=== PATIENT | female | born 1945 | race Caucasian/White ===

== ENCOUNTER 2016-10-28 20:06 | Observation (INO) | payer MEDICARE ==
[~2016-10-28] VITALS: Ht 167.6 cm; Wt 75.0 kg
[~2016-10-28 20:06] MED LIST: ASPI81TA82 PO; ATOR40TA49 PO; IBUP600T26 PO
[2016-10-28 20:08] VITALS: BP 183/93; PULSE 96; RESP 14; TEMP 98.3; O2SAT 97
[2016-10-28] MEDS ORDERED: LIPI80TA PO (20:19)
[2016-10-28] MEDS ORDERED: OMEP20TA PO (20:19)
[2016-10-28] MEDS ORDERED: ALEN1TAB48 PO (20:19)
--- NOTE | 2016-10-28 20:26 | PD ---
HPI Chief Complaint: Chest Pain Time Seen by Provider: 20:16 Travel History International Travel<30 days: No Contact w/Intl Traveler<30days: No Traveled to known affect area: No History of Present Illness HPI The patient is 71 year old female who presents to the [facility] emergency department with a history of chest pain and palpitations that began again prior to arrival. The patient reports that she's had problems with palpitations and intermittent chest pain 3-4 times per day for the last 4 months. 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 She reports that she also has an appointment with her new primary care physician, Dr. Alvarado scheduled for Saturday. The patient reports that today with the palpitations and the sensation of chest pressure in the center of her chest and bilateral upper abdomen/lower chest the patient had nausea and vomiting 3. She reports that this began 20 minutes after eating. She reports that sensation has not occurred with eating in the past. She denies any other alleviating or aggravating factors other than stress. The patient was brought in by ambulance services and was given 162 mg of aspirin by mouth 1, nitroglycerin sublingual 1. The patient's chest pain after nitroglycerin 1 from a 9 out of 10 in severity down to 0 out of 10. She reports that she had associated shortness of breath or diaphoresis. She denies having any radiation of the pain. She reports having nausea and vomiting 3. She denies having any cough or congestion. She denies having any prior history of cardiac disease other than a leaky heart valve. Her last cardiac stress test was done 4 years ago. She denies having any prior history of DVT or PE. The patient denies any history of fever, cough, congestion, neck pain,abdominal pain, diarrhea, urinary symptoms, or neurologic symptoms. [facility] Past Medical History Narrative Medical The patient reports that she has a history of a leaky cardiac valve, unsure of which valve, history of hyperlipidemia, history of palpitations. The patient reports that she last had a stress test done 4 years ago. She is seen by [facility]. Arthritis: No Asthma: No Autoimmune Disease: No Blood Disorders: Yes Heart Rhythm Problems: No Cancer: No Cardiac Catheterization: No Cardiovascular Problems: Yes (DIZZINESS) High Cholesterol: Yes Congestive Heart Failure: No COPD: No Cerebrovascular Accident: Yes (TIA) Diabetes: No Endocrine: No Gastrointestinal Disorders: Yes GERD: Yes Glaucoma: No Genitourinary: No Hepatitis: No Hiatal Hernia: No Hypertension: No Kidney Stones: No Musculoskeletal: Yes Neurologic: Yes Psychiatric: No Reproductive: No Respiratory: No Immunizations Current: Yes Migraines: Yes Myocardial Infarction: No Renal Failure: No Seizures: No Sleep Apnea: No Thyroid Disease: No Ulcer: Yes Menopausal: Yes Past Surgical History Narrative Surgical The patient's past surgical history is significant for cholecystectomy, hysterectomy, right arm ORIF. Abdominal Surgery: Yes (CHOLECYSTECTOMY, APPENDECTOMY) AICD: No Appendectomy: Yes Body Medical Devices: MILDRED & PINS RT UPPER ARM Cholecystectomy: Yes Coronary Artery Bypass Graft: No Genitourinary Surgery: No Gynecologic Surgery: Yes (PARTIAL AND FULL HYSTERECTOMY) Hysterectomy: Yes Pacemaker: No Other Surgery: Yes (BREAST BIOPSY X 3) Social History Alcohol Use: Yes (glass of wine few times a week) Tobacco Use: No Substance Use: No Allergies-Medications (Allergen,Severity, Reaction): Coded Allergies: Penicillin (Verified Allergy, Severe, RASH, 10/28/16) Shellfish (Verified Allergy, Severe, Anaphylaxis, 10/28/16) Reported Meds & Prescriptions Reported Meds & Active Scripts Active Reported Omeprazole 20 Mg Tab 20 Mg PO DAILY Alendronate (Alendronate Sodium) 70 Mg Tab 70 Mg PO Q7D Lipitor (Atorvastatin Calcium) 80 Mg Tab 80 Mg PO HS Review of Systems Except as stated in HPI: all other systems reviewed are Neg General / Constitutional: No: Fever Eyes: No: Visual changes HENT: No: Headaches Cardiovascular: Positive: Chest Pain or Discomfort, Palpitations, No: Dyspnea on exertion Respiratory: Positive: Shortness of Breath Gastrointestinal: Positive: Nausea (associated with the chest pain), Vomiting, No: Abdominal Pain, Changes in Bowel Habits, Indigestion, Loss of Appetite Genitourinary: No: Dysuria Musculoskeletal: Positive: Pain (chronic left leg pain) Skin: No Rash Neurologic: No: Weakness Psychiatric: No: Depression Endocrine: No: Polydipsia Hematologic/Lymphatic: No: Easy Bruising Physical Exam Narrative General: The patient is a well-developed well-nourished female, slightly anxious appearing on examination, reporting improvement of chest pain down to 0 out of 10 from a 9 out of 10 in severity prior to arrival. Head and Neck exam: Head is normocephalic atraumatic. Eyes: EOMI, pupils are equal round and reactive to light. Nose: Midline septum with pink mucous membranes Mouth: Dentition unremarkable. Moist mucus membranes. Posterior oropharynx is not erythematous. No tonsillar hypertrophy. Uvula midline. Airway patent. Neck: No palpable lymphadenopathy. No nuchal rigidity. No thyromegaly. Cardiovascular: Regular rate and rhythm without murmurs, gallops, or rubs. No pulse deficit to the extremities and simultaneous palpation of her radial artery and auscultation. Lungs: Clear to auscultation bilaterally. No wheezes, rhonchi, or rales. Abdomen: Soft, slight discomfort on palpation of the right upper quadrant and midepigastric area of the abdomen, no other tenderness on palpation of the other 3 quadrants of the abdomen. No guarding, rebound, or rigidity. Negative [place] sign. Normal bowel sounds are audible. No tenderness on palpation of McBurney's point. Extremities: No clubbing or cyanosis. The patient has trace to 1+ pitting edema bilateral lower extremities. 2+ pulses in all 4 extremities. The patient has a left- sided calf tenderness on palpation with varicosity noted along the medial aspect of the left knee and into the left calf. Back: No spinous process tenderness to palpation. No costovertebral angle tenderness to palpation. Neurologic Exam: Grossly nonfocal. Skin Exam: No rash noted. Intact skin that is warm and dry. Data Data Last Documented VS Vital Signs Date Time Temp Pulse Resp B/P Pulse Ox O2 Delivery O2 Flow Rate FiO2 10/28/16 20:21 97 Room Air 10/28/16 20:08 98.3 96 14 183/93 Orders Electrocardiogram (10/28/16 20:16) B-Type Natriuretic Peptide (10/28/16 20:16) Ckmb (Isoenzyme) Profile (10/28/16 20:16) Complete Blood Count With Diff (10/28/16 20:16) Comprehensive Metabolic Panel (10/28/16 20:16) D-Dimer (10/28/16 20:16) Magnesium (Mg) (10/28/16 20:16) Prothrombin Time / Inr (Pt) (10/28/16 20:16) Act Partial Throm Time (Ptt) (10/28/16 20:16) Troponin I (10/28/16 20:16) Lipase (10/28/16 20:16) Chest, Single Ap (10/28/16 20:16) Ecg Monitoring (10/28/16 20:16) Bilateral Bp Monitoring (10/28/16 20:16) Iv Access Insert/Monitor (10/28/16 20:16) Oximetry (10/28/16 20:16) Oxygen Administration (10/28/16 20:16) Aspirin Chew (Aspirin Chew) (10/28/16 20:30) Nitroglycerin 2% Oint (Nitroglycerin 2% (10/28/16 20:30) Sodium Chloride 0.9% Flush (Ns Flush) (10/28/16 20:30) Urinalysis - C+S If Indicated (10/28/16 20:16) Thyroid Stimulating Hormone (10/28/16 20:16) Us Leg Venous Doppler (10/28/16 20:16) CKMB (10/28/16 20:20) CKMB% (10/28/16 20:20) Place In Observation (10/28/16 21:37) Activity Bed Rest With Brp (10/28/16 21:37) Vital Signs (Adult) Q4H (10/28/16 21:37) Cardiac Rhythm .As Directed (10/28/16 21:37) ^ Notify Dr: Other .PRN (10/28/16 21:37) ^ Notify Dr. Parameters (10/28/16 21:37) Resp Oxygen Nasal Cannula (10/28/16 ) Diet Npo (10/29/16 Breakfast) Ckmb (Isoenzyme) Profile (10/28/16 23:20) Ckmb (Isoenzyme) Profile (10/29/16 02:20) Troponin I (10/28/16 23:20) Troponin I (10/29/16 02:20) Electrocardiogram (10/28/16 23:20) Electrocardiogram (10/29/16 02:20) ^ Obtain (10/28/16 21:37) Sodium Chloride 0.9% Flush (Ns Flush) (10/28/16 21:45) Sodium Chloride 0.9% Flush (Ns Flush) (10/29/16 09:00) Acetaminophen (Tylenol) (10/28/16 21:45) Pantoprazole (Protonix) (10/29/16 09:00) Nitroglycerin 2% Oint (Nitroglycerin 2% (10/29/16 00:00) Admit Order (Ed Use Only) (10/28/16 21:37) CKMB (10/28/16 23:00) CKMB% (10/28/16 23:00) CKMB (10/29/16 01:53) CKMB% (10/29/16 01:53) Labs Laboratory Tests Test 10/28/16 20:20 White Blood Count 6.4 TH/MM3 Red Blood Count 4.03 MIL/MM3 Hemoglobin 13.1 GM/DL Hematocrit 38.1 % Mean Corpuscular Volume 94.4 FL Mean Corpuscular Hemoglobin 32.4 PG Mean Corpuscular Hemoglobin 34.3 % Concent Red Cell Distribution Width 13.4 % Platelet Count 168 TH/MM3 Mean Platelet Volume 7.4 FL Neutrophils (%) (Auto) 44.3 % Lymphocytes (%) (Auto) 43.1 % Monocytes (%) (Auto) 10.6 % Eosinophils (%) (Auto) 1.7 % Basophils (%) (Auto) 0.3 % Neutrophils # (Auto) 2.8 TH/MM3 Lymphocytes # (Auto) 2.8 TH/MM3 Monocytes # (Auto) 0.7 TH/MM3 Eosinophils # (Auto) 0.1 TH/MM3 Basophils # (Auto) 0.0 TH/MM3 CBC Comment DIFF FINAL Differential Comment Prothrombin Time 10.3 SEC Prothromb Time International 0.9 RATIO Ratio Activated Partial 25.6 SEC Thromboplast Time D-Dimer Quantitative (PE/DVT) 0.21 MG/L FEU Sodium Level 135 MEQ/L Potassium Level 3.6 MEQ/L Chloride Level 101 MEQ/L Carbon Dioxide Level 20.8 MEQ/L Anion Gap 13 MEQ/L Blood Urea Nitrogen 19 MG/DL Creatinine 0.73 MG/DL Estimat Glomerular Filtration 79 ML/MIN Rate Random Glucose 88 MG/DL Calcium Level 9.0 MG/DL Magnesium Level 2.3 MG/DL Total Bilirubin 0.3 MG/DL Aspartate Amino Transf 72 U/L (AST/SGOT) Alanine Aminotransferase 40 U/L (ALT/SGPT) Alkaline Phosphatase 62 U/L Total Creatine Kinase 114 U/L Creatine Kinase MB 1.1 NG/ML Troponin I LESS THAN 0.02 NG/ML B-Type Natriuretic Peptide 23 PG/ML Total Protein 7.9 GM/DL Albumin 4.1 GM/DL Lipase 222 U/L Thyroid Stimulating Hormone 2.940 uIU/ML 3rd Gen [facility] Medical Decision Making Medical Screen Exam Complete: Yes Emergency Medical Condition: Yes Medical Record Reviewed: Yes Interpretation(s) Last Impressions Lower Extremity Ultrasound 10/28/162015 Signed Impressions: Service Date/Time: Friday, October 28, 2016 20:41 - CONCLUSION: Normal examination. Asael Lewis Jr., MD Chest X-Ray 10/28/162015 Signed Impressions: Service Date/Time: Friday, October 28, 2016 20:20 - CONCLUSION: No acute disease. Asael Lewis Jr., MD Differential Diagnosis Acute coronary syndrome, versus endocrine disorder such as hyperthyroidism, versus anxiety disorder, versus electrolyte abnormality, versus valvular abnormality, versus PE, versus DVT Narrative Course During the course of the patients emergency department visit, the patients history, examination, and differential diagnosis were reviewed with the patient. The patient had IV access obtained and blood work sent for analysis. The patient was placed on a monitoring tech with oximetry and blood pressure monitoring. An EKG was done on arrival that shows a sinus rhythm heart rate of 85, no acute ST segment elevation is noted, T waves are inverted in V1, no acute ST segment depression is noted. An ultrasound of the left lower extremity was ordered to further evaluate for possible DVT due to the patient's due to the patient's complaints of left leg pain and varicosities noted. Chest x-ray was ordered. The patient was provided an additional 162 mg of aspirin by mouth. The patient reports being chest pain-free, therefore the patient was given nitroglycerin 1 inch the chest wall. The patients laboratory studies were reviewed and remarkable for white count of 6.4, hemoglobin 13.1, platelets 168 with 10.6 monocytes, CMP is remarkable for a sodium of 135, CO2 20.8, GFR 79, AST 72, initial set of cardiac enzymes are negative, BNP 23, lipase 222, TSH 2.94, PT PTT unremarkable, d-dimer is 0.21 decreased and the likelihood of pulmonary embolism. Urinalysis is unremarkable. Radiology studies were reviewed and remarkable for an ultrasound of the left leg that is negative for DVT, chest x-ray shows no acute abnormality. The patients results were discussed with the patient, including the plan of care. I explained that further testing and/ or monitoring is indicated based on the patients history, examination, and/ or laboratory findings. Therefore, I recommended admission for additional evaluation. The patient expressed understanding and was agreeable with this plan. The patient was admitted to the hospital in stable condition and sent to a bed under the care of the chest pain center. Diagnosis Primary Impression: Chest pain, rule out acute myocardial infarction Admitting Information Admitting Physician Requests: Fabienne Smith MD Oct 28, 2016 20:26
[2016-10-28] MEDS ORDERED: ASPIRIN 81 MG CHEW TAB PO ONE (20:30)
[2016-10-28] MEDS ORDERED: NITROGLYCERIN 2% OINT 1 GM PACKET TOP ONE (20:30)
[2016-10-28] MEDS ORDERED: SODIUM CHLORIDE 0.9% FLUSH 5 ML FLUSH IVF PRN ×2 (20:30→21:45)
[2016-10-28 20:37] LABS: AUTOMATED NEUTROPHIL # 2.8 TH/MM3 (1.8-7.7); BASOPHIL % 0.3 % (0.0-2.0); EOSINOPHIL # 0.1 TH/MM3 (0-0.4); EOSINOPHIL % 1.7 % (0.0-4.0); HEMATOCRIT 38.1 % (35.0-46.0); HEMO FLAGS DIFF FINAL; LYMPH % 43.1 % (9.0-44.0); LYMPHOCYTE # 2.8 TH/MM3 (1.0-4.8); MEAN CELL VOLUME 94.4 FL (80.0-100.0); MEAN CORPUSCULAR HEMOGLOBIN 32.4 PG (27.0-34.0); MEAN CORPUSCULAR HGB CONC 34.3 % (32.0-36.0); MONO % 10.6 % (0.0-8.0); NEUT % 44.3 % (16.0-70.0); PLATELET COUNT 168 TH/MM3 (150-450); RED BLOOD COUNT 4.03 MIL/MM3 (4.00-5.30); RED CELL DISTRIBUTION WIDTH 13.4 % (11.6-17.2); WHITE BLOOD COUNT 6.4 TH/MM3 (4.0-11.0)
--- NOTE | 2016-10-28 20:50 | RADRPT ---
EXAM DATE/TIME: 10/28/2016 20:20 [facility] COMPARISON: CHEST SINGLE AP, January 17, 2015, 12:30. INDICATIONS : Chest pain and Palpatations MEDICAL HISTORY : None. SURGICAL HISTORY : None. ENCOUNTER: Initial ACUITY: 1 day PAIN SCORE: 0/10 LOCATION: Bilateral chest FINDINGS: A single view of the chest demonstrates the lungs to be symmetrically aerated without evidence of mas s, infiltrate or effusion. The cardiomediastinal contours are unremarkable. Osseous structures are intact. Right humeral jered. CONCLUSION: No acute disease. Asael Lewis Jr., MD on October 28, 2016 at 20:48 Board Certified Radiologist. This report was verified electronically.
[2016-10-28 20:55] LABS: APTT (PATIENT) 25.6 SEC (24.3-30.1); INTERNATIONAL NORMALIZED RATIO 0.9 RATIO; PROTHROMBIN TIME - PATIENT 10.3 SEC (9.8-11.6)
[2016-10-28 21:00] LABS: ANION GAP 13 MEQ/L (5-15); AST (GOT) 72 U/L (15-37); BICARBONATE 20.8 MEQ/L (21.0-32.0); BLOOD UREA NITROGEN 19 MG/DL (7-18); CHLORIDE 101 MEQ/L (98-107); GLOMERULAR FILTRATION RATE 79 ML/MIN (>89); MAGNESIUM 2.3 MG/DL (1.5-2.5); POTASSIUM 3.6 MEQ/L (3.5-5.1); SODIUM (NA) 135 MEQ/L (136-145)
--- NOTE | 2016-10-28 21:06 | RADRPT ---
EXAM DATE/TIME: 10/28/2016 20:41 [facility] COMPARISON: No previous studies available for comparison. INDICATIONS : Left leg pain. MEDICAL HISTORY : Hypercholesterolemia. Gastroesophageal reflux disease. TIA. SURGICAL HISTORY : Appendectomy. Hysterectomy. Right arm surgery. Breast biopsy. ENCOUNTER: Initial ACUITY: 1 day PAIN SCORE: 3/10 LOCATION: Left leg. TECHNIQUE: Venous ultrasound of the leg was performed from the inguinal ligament to the proximal calf. Real-boris e, color Doppler and spectral tracing, compression and augmentation techniques were used. FINDINGS: There is normal compressibility of the deep venous system from the inguinal region to the proximal ca lf. No echogenic clot is seen in the lumen of the common femoral, femoral, popliteal, and posterior tibial veins. There is a normal response of the venous system to proximal and distal augmentation an d respiration. CONCLUSION: Normal examination. Asael eLwis Jr., MD on October 28, 2016 at 21:03 Board Certified Radiologist. This report was verified electronically.
[2016-10-28 21:11] LABS: ALKALINE PHOSPHATASE 62 U/L (45-117); ALT (GPT) 40 U/L (10-53); CREATINE KINASE 114 U/L (26-192); TOTAL BILIRUBIN ADULT 0.3 MG/DL (0.2-1.0)
[2016-10-28 21:23] LABS: CKMB 1.1 NG/ML (0.5-3.6)
[2016-10-28] MEDS ORDERED: ACETAMINOPHEN 500 MG CPLT PO PRN (21:45)
[2016-10-28 22:03] VITALS: O2SAT 97
[2016-10-28 22:35] VITALS: BP 111/58; PULSE 88; RESP 13; O2SAT 97
[2016-10-28 23:24] LABS: CREATINE KINASE 105 U/L (26-192)
[2016-10-28 23:32] VITALS: BP 116/60; PULSE 81; RESP 18; TEMP 97.6; O2SAT 96
[2016-10-28 23:37] LABS: CKMB 0.7 NG/ML (0.5-3.6)
[2016-10-28 23:49] LABS: BACTERIA, URINE RARE /hpf; BLOOD, URINE NEG (NEG); COMMENT (UR) CULT NOT INDICATED; CULTURE IF INDICATED CULT NOT INDICATED; GLUCOSE,URINE NEG (NEG); KETONE, URINE NEG (NEG); MUCUS URINE FEW /lpf (OCC); NITRITE,URINE NEG (NEG); URINE COLOR COLORLESS (YELLW/STRAW)
[2016-10-29 00:13] VITALS: PULSE 84
[2016-10-29 02:24] LABS: CREATINE KINASE 107 U/L (26-192)
[2016-10-29 02:37] LABS: CKMB 0.6 NG/ML (0.5-3.6)
[2016-10-29 03:58] VITALS: BP 94/53; PULSE 77; RESP 16; TEMP 98.2; O2SAT 95
[2016-10-29 04:04] VITALS: PULSE 71
[2016-10-29] MEDS: NITROGLYCERIN 2% OINT 1 GM PACKET TOP SCH ×2 (04:12)
[2016-10-29 07:24] VITALS: BP 135/63; PULSE 78; RESP 20; TEMP 97.3; O2SAT 98
[2016-10-29 07:26] VITALS: O2SAT 98
--- NOTE | 2016-10-29 08:06 | HHI.DCPOC ---
Discharge Care Plan Diagnosis: (1) Chest pain, atypical Goals to Promote Your Health * To prevent worsening of your condition and complications * To maintain your health at the optimal level Directions to Meet Your Goals Take your medications as prescribed Follow your dietary instruction Follow activity as directed Keep your appointments as scheduled Take your immunizations and boosters as scheduled If your symptoms worsen call your PCP, if no PCP go to Urgent Care Center or Emergency Room Smoking is Dangerous to Your Health. Avoid second hand smoke Call the 24-hour hour crisis hotline for domestic abuse at [facility] Oct 29, 2016 08:05
[2016-10-29 08:14] VITALS: PULSE 83
[2016-10-29] MEDS ORDERED: PANTOPRAZOLE SOD 40 MG DELAYED RELEASE TAB PO SCH (09:00)
[2016-10-29] MEDS ORDERED: SODIUM CHLORIDE 0.9% FLUSH 5 ML FLUSH IVF SCH (09:00)
--- NOTE | 2016-10-29 09:40 | MH ---
cc: LUIS ROSAS MD DATE OF ADMISSION: 10/28/2016 DATE OF : 1945 CHIEF COMPLAINT Chest pain. HISTORY OF PRESENT ILLNESS This is a 71-year-old female who presented to the ED complaining of a discomfort in the center of her chest, mostly in the epigastric region, that began last night about 20 or 30 minutes after dinner. She had some spaghetti for dinner. The symptoms lasted for about 3-4 minutes. She states these started to improve significantly after having emesis. She had three episodes of emesis afterwards. She had no shortness of breath or diaphoresis. She denies a history of heart disease. She states she had a cardiac work-up a few years ago and that it was okay. At the time she was following with Dr. Sanchez. Her discomfort has not recurred. Denies any recent illnesses. PAST MEDICAL HISTORY 1. GERD. 2. Hyperlipidemia. 3. TIA. 4. CVA. Denies hypertension, diabetes and known CAD. FAMILY HISTORY Denies family history of CAD. SOCIAL HISTORY The patient is a non-smoker, denies alcohol or illicit drugs. PAST SURGICAL HISTORY 1. Cholecystectomy. 2. Appendectomy. 3. Hysterectomy. 4. ORIF of the right arm. ALLERGIES 1. PENICILLIN. 2. SHELLFISH. MEDICATIONS 1. Omeprazole. 2. Lipitor. 3. Alendronate. REVIEW OF SYSTEMS GENERAL: Denies fevers or chills. Denies recent illnesses. HEENT: Denies headache, earache, sore throat, difficulty swallowing. CARDIOVASCULAR: Describes the discomfort as mentioned above. Denies diaphoresis. Denies sensation of heart beating rapidly or irregularly. Denies syncope. RESPIRATORY: Denies shortness of breath or inspirational chest discomfort. Denies coughing, wheezing or hemoptysis. GASTROINTESTINAL: She describes a central chest discomfort/epigastric discomfort, improved after three episodes of emesis. Denies hematemesis. Denies diarrhea, constipation or blood in the stool. MUSCULOSKELETAL: Denies joint pain or edema. Denies calf pain or edema. NEUROVASCULAR: Denies headache or dizziness. ENDOCRINE: Denies polyuria or polydipsia. HEMATOLOGIC: Denies easy bruising. SKIN: Denies rash or itching. PHYSICAL EXAMINATION VITAL SIGNS: The vital signs in the emergency department initially included a blood pressure of 183/93, heart rate 96, respirations 14, pulse oximetry 97% on room air, and she was afebrile. The most recent vital signs include a blood pressure of 135/63, heart rate 78, respirations 20, pulse oximetry 98% on room air and she was afebrile. GENERAL: The patient is seen in the examination room in no apparent distress. She is very pleasant. She speaks in clear and complete sentences. HEENT: Atraumatic, normocephalic. NECK: Supple without lymphadenopathy. Trachea is midline. No JVD or carotid bruits. CARDIOVASCULAR: Regular rate and rhythm without murmur, gallop or rub. CHEST/LUNGS: Clear to auscultation bilaterally. No wheezing, rales or rhonchi. No use of accessory muscles. ABDOMEN: Nontender, nondistended. Bowel sounds are normal. The abdomen is soft. No obvious pulsatile mass or bruit. No CVA tenderness. Strong femoral pulses bilaterally. EXTREMITIES: The patient is moving upper and lower extremities freely. No calf tenderness or edema. No Homans sign. Strong pulses in the upper and lower extremities. NEUROLOGIC: The patient is alert and oriented. Cranial nerves II through XII are grossly intact. No focal deficits. Speech is clear. SKIN: No rashes. Turgor is normal. LABORATORY DATA CBC is unremarkable. Coagulation studies are unremarkable including a D-dimer normal at 0.21. Complete metabolic panel is essentially unremarkable. Serial cardiac enzymes are normal x3. Lipase is normal at 222. TSH is normal at 2.940. BNP is normal at 23. IMAGING DATA A single-view chest x-ray read by the radiologist as no acute disease. There is a right humeral jered. Ultrasound of the left leg to rule out DVT is negative for DVT. EKG DATA EKGs have sinus rhythm without significant ST segment depression or elevation. ASSESSMENT AND PLAN 1. Atypical chest pain: The patient has had serial cardiac enzymes and EKGs for ruling out purposes. She has been seen by Dr. Luis Rosas of cardiology in the chest pain center. Her symptoms are very atypical. No further testing will be obtained. She will be discharged home at this time with instructions to follow-up with her primary care physician as well as her veneer layer, Dr. Sanchez. 2. GERD: Continue current medication. 3. Hyperlipidemia: Continue current medication. 4. The patient is stable at this time. She agreeable to this plan. Dictated by: NIKKI Kwong-Scott MD JOHN PAUL Sellers/EARL /8:47 AM /9:39 AM
--- NOTE | 2016-10-30 09:11 | EKG ---
Date Performed: 10/29/2016 Time Performed: 02:23:41 PTAGE: 71 years EKG: Sinus rhythm NORMAL ECG Since PREVIOUS TRACING , no significant change noted PREVIOUS TRACIN10/28/2016 23.28 DOCTOR: Shayla Garcia Interpretating Date/Time 10/30/2016 09:10:52
--- NOTE | 2016-10-30 09:12 | EKG ---
Date Performed: 10/28/2016 Time Performed: 23:28:10 PTAGE: 71 years EKG: Sinus rhythm NORMAL ECG Since PREVIOUS TRACING , no significant change noted PREVIOUS TRACIN10/28/2016 20.15 DOCTOR: Shayla Garcia Interpretating Date/Time 10/30/2016 09:11:34
--- NOTE | 2016-10-30 09:13 | EKG ---
Date Performed: 10/28/2016 Time Performed: 20:15:28 PTAGE: 71 years EKG: Sinus rhythm NORMAL ECG INTERPRETATION BASED ON A DEFAULT AGE OF 42 YEARS Since PREVIOUS TRACING , no significant change noted PREVIOUS TRACIN01/17/2015 10.46 DOCTOR: Shayla Garcia Interpretating Date/Time 10/30/2016 09:12:26
== END 2016-10-29 09:10 | disposition home or self-care (01) ==
LOC: NEPE 20:06 → NEDA 21:53 → NEPGCP 23:26
PROVIDERS: ADMIT Family Medicine; ATTEND Family Medicine
DX: R07.89 Other chest pain (principal); K21.9 Gastro-esophageal reflux disease without esophagitis; E78.5 Hyperlipidemia, unspecified; R00.2 Palpitations; R11.2 Nausea with vomiting, unspecified; R06.02 Shortness of breath; R61 Generalized hyperhidrosis; M79.605 Pain in left leg; E78.00 Pure hypercholesterolemia, unspecified; Z86.73 Personal history of transient ischemic attack (TIA), and cerebral infarction without residual deficits; Z79.899 Other long term (current) drug therapy; R60.9 Edema, unspecified
CPT/HCPCS: 71010; 80053; 81001; 82550; 82552; 83690; 83735; 83880; 84443; 84484; 85025; 85379; 85610; 85730; 93005; 93971; 99285; G0378